=== PATIENT | female | born 1955 | race Caucasian/White ===

== ENCOUNTER → 2016-07-02 06:45 | Day surgery (SDC) | payer BC ==
[~2016-07-02 06:45] MED LIST: Buffered Lidocaine 1% SYRIN* 3 ML/SYR SYRINGE INTRADERM ONE; Bupivacaine 0.25% SDV* 30 ML ONE; Dextrose 50% Syringe 50 ML* 25 GM/50 ML SYRINGE IV PUSH PRN; Famotidine IV* 10 MG/ML 2 ML (20 mg) IV ONE; Famotidine IV* 10 MG/ML 2 ML (20 mg) ONE; HYDROcodone/ACETAMIN 5-325 MG* 1 TAB PO PRN; Insulin LISPRO* 1 UNITS UNIT SUBCUT ONE; Insulin REGULAR(*) 1 UNITS UNIT ONE; Lidocaine 2% PF* 5 ML VIAL ONE; Midazolam* 1 MG/ML 2 ML VIAL (2 MG) ONE; Midazolam* 1 MG/ML 5 ML VIAL (5 MG) ONE; PROCHLORPERAZINE INJ 5 MG/ML 2 ML VIAL IV PRN; Propofol* 10 MG/ML 20 ML BTL IV PUSH ONE; ceFAZolin 2 GM PREMIX(*) 2 GM/50 ML BAG IVPB ONE; fentaNYL* 50 MCG/ML 2 ML VIAL (100 MCG VIAL) IV PRN; fentaNYL* 50 MCG/ML 2 ML VIAL (100 MCG VIAL) ONE
[2016-07-02 08:34] VITALS: BP 106/54
== END | disposition home or self-care (01) ==
LOC: OREAST 06:45
PROVIDERS: ATTEND Plastic Surgery
DX: M65.321 Trigger finger, right index finger (principal); M67.441 Ganglion, right hand; E11.9 Type 2 diabetes mellitus without complications; I10 Essential (primary) hypertension; D64.9 Anemia, unspecified; Z68.41 Body mass index [BMI] 40.0-44.9, adult; Z79.4 Long term (current) use of insulin
CPT/HCPCS: 88304; J0690; J2250; J2704; J3010

== ENCOUNTER 2016-09-24 06:13 | Day surgery (SDC) | payer BC ==
[~2016-09-24 06:13] MED LIST changes: +Buffered Lidocaine 0.9% SYRIN* 5 ML/SYR SYRINGE INTRADERM ONE; -Buffered Lidocaine 1% SYRIN* 3 ML/SYR SYRINGE INTRADERM ONE; -Bupivacaine 0.25% SDV* 30 ML ONE; -Dextrose 50% Syringe 50 ML* 25 GM/50 ML SYRINGE IV PUSH PRN; -Famotidine IV* 10 MG/ML 2 ML (20 mg) IV ONE; -Famotidine IV* 10 MG/ML 2 ML (20 mg) ONE; -HYDROcodone/ACETAMIN 5-325 MG* 1 TAB PO PRN; -Insulin LISPRO* 1 UNITS UNIT SUBCUT ONE; -Insulin REGULAR(*) 1 UNITS UNIT ONE; -Lidocaine 2% PF* 5 ML VIAL ONE; -Midazolam* 1 MG/ML 2 ML VIAL (2 MG) ONE; -Midazolam* 1 MG/ML 5 ML VIAL (5 MG) ONE; -PROCHLORPERAZINE INJ 5 MG/ML 2 ML VIAL IV PRN; -Propofol* 10 MG/ML 20 ML BTL IV PUSH ONE; -ceFAZolin 2 GM PREMIX(*) 2 GM/50 ML BAG IVPB ONE; -fentaNYL* 50 MCG/ML 2 ML VIAL (100 MCG VIAL) IV PRN; -fentaNYL* 50 MCG/ML 2 ML VIAL (100 MCG VIAL) ONE
[2016-09-24] MEDS ORDERED: ceFAZolin 2 GM PREMIX(*) 2 GM/50 ML BAG IVPB ONE (06:33)
[2016-09-24] MEDS ORDERED: Buffered Lidocaine 0.9% SYRIN* 5 ML/SYR SYRINGE ONE (06:33)
[2016-09-24] MEDS ORDERED: Insulin LISPRO* 1 UNITS UNIT SUBCUT ONE (06:48)
[2016-09-24] MEDS ORDERED: Bupivacaine 0.25% SDV* 30 ML ONE (07:08)
[2016-09-24] MEDS ORDERED: Midazolam* 1 MG/ML 2 ML VIAL (2 MG) ONE (07:49)
[2016-09-24] MEDS ORDERED: fentaNYL* 50 MCG/ML 2 ML VIAL (100 MCG VIAL) ONE (07:49)
[2016-09-24 09:16] VITALS: BP 105/63
== END 2016-09-24 09:34 | disposition home or self-care (01) ==
LOC: OR 06:13
PROVIDERS: ATTEND Plastic Surgery
DX: M65.322 Trigger finger, left index finger (principal); M65.342 Trigger finger, left ring finger; R22.32 Localized swelling, mass and lump, left upper limb; L90.5 Scar conditions and fibrosis of skin; E10.8 Type 1 diabetes mellitus with unspecified complications; Z79.4 Long term (current) use of insulin; Z79.84 Long term (current) use of oral hypoglycemic drugs
CPT/HCPCS: 88305; J0690; J2250; J3010

== ENCOUNTER 2017-03-11 08:43 | Emergency (ER) | payer BC ==
--- NOTE | 2017-03-11 09:33 | UC ---
Lower Extremity/Ankle HPI - HPI Summary HPI Summary: 61 yo F, left lower extremity discomfort. HX: positive for DM, hypertension. Seen last night; follows up today for swelling left leg. Chronic condition, now with more discomfort primarily over ankle and front of leg. Nurses note: Patient states she is a diabetic, and she will occasionally have left lower extremity swelling. Patient states that yesterday she was having a constant aching pain in her left leg along with swelling. Patient went to her PCP yesterday that recommended she go to the ED or Urgent care for an ultrasound to r/o DVT. Patient states the pain has improved a bit today. - History of Current Complaint Chief Complaint: UCLowerExtremity Stated Complaint: PAIN IN LOWER LEG Time Seen by Provider: 03/11/17 09:30 Hx Obtained From: Patient Onset/Duration: Gradual Onset Severity Initially: Mild Aggravating Factor(s): Standing Able to Bear Weight: Yes - Risk Factors Gout Risk Factors: Age Over 40, Diabetes, Hypertension, Obesity Septic Arthritis Risk Factor: Negative - Allergies/Home Medications Allergies/Adverse Reactions: Allergies Allergy/AdvReac Type Severity Reaction Status Date / Time Clarithromycin [From Biaxin] Allergy Intermediate Rash Verified 03/11/17 08:52 Cephalexin [From Keflex] Allergy INTESTINAL Verified 03/11/17 08:52 Exenatide [From Bydureon] Allergy Hives Verified 03/11/17 08:52 Amoxicillin [From Augmentin] AdvReac Intermediate Diarrhea Verified 03/11/17 08: 52 Clavulanic Acid AdvReac Intermediate Diarrhea Verified 03/11/17 08:52 [From Augmentin] Tetanus Toxoid AdvReac Mild LOCAL Verified 03/11/17 08:52 SWELLING PMH/Surg Hx/FS Hx/Imm Hx Previously Healthy: No Endocrine History: Diabetes Cardiovascular History: Hypertension - Surgical History Surgical History: Yes Surgery Procedure, Year, and Place: 1988 TONSILLECTOMY- [facility]. 1972 RIGHT BUNIONECTOMY, [facility]. 1992 C SECTION, [facility] [place] BILATERAL TUBAL LIGATION, FOOT SURGERY (SAME TIME) [facility] [place] LEFT FOOT BUNIONECTOMY[place] [facility] [place] RIGHT TOTAL HIP REPLACEMENT, [facility] [place] 2011 LAPAROSCOPIC CHOLECYSTECTOMY, [facility] [place] 1997 NEUROMA REMOVED LEFT FOOT, [facility] [place] RIGHT CARPAL TUNNEL AND TRIGGER FINGER RELEASE, [facility] [place] 2015 LEFT TRIGGER FINGER RELEASE, [facility] [place]. 2017 LEFT HAND INDEX/RING TRIGGER RELEASE, [facility] [place] - Family History Known Family History: Positive: Hypertension - Social History Occupation: Employed Full-time Lives: With Family Alcohol Use: None Substance Use Type: None Smoking Status (MU): Never Smoked Tobacco Have You Smoked in the Last Year: No Review of Systems Constitutional: Negative Skin: Negative Eyes: Negative ENT: Negative Respiratory: Negative Cardiovascular: Negative Gastrointestinal: Negative Genitourinary: Negative Motor: Negative Neurovascular: Negative Musculoskeletal: Edema - swelling left calf Neurological: Negative Psychological: Negative All Other Systems Reviewed And Are Negative: Yes Physical Exam Triage Information Reviewed: Yes Appearance: Well-Appearing, No Pain Distress Vital Signs: Initial Vital Signs Temp 97.5 F 03/11/17 08:53 Pulse 74 03/11/17 08:53 Resp 16 03/11/17 08:53 BP 131/74 03/11/17 08:53 Pulse Ox 97 03/11/17 08:53 Vital Signs Reviewed: Yes Eye Exam: Normal ENT Exam: Normal Dental Exam: Normal Neck exam: Normal Neck: Positive: 1 Respiratory Exam: Normal Respiratory: Positive: Lungs clear Cardiovascular Exam: Normal Cardiovascular: Positive: RRR, No Murmur Abdominal Exam: Normal Abdomen Description: Positive: Nontender Musculoskeletal Exam: Normal - left calf one inch larger than right; neg Homans ; no superficial thrombophlebitis; no pain in calf., Other Neurological Exam: Normal Psychological Exam: Normal Skin Exam: Normal Lower Extremity Course/Dx - Course Course Of Treatment: Patient with increased swelling and discomfort, left lower extremity. Patient will go to ultrasound in 90 minutes. 12 noon: FINDINGS: VEINS: The venous system of the left lower extremity is compressible throughout its. course, with normal flow on color Doppler imaging and normal response to augmentation on. spectral Doppler imaging. SOFT TISSUES: Unremarkable. OTHER FINDINGS: None. IMPRESSION: NO LEFT LOWER EXTREMITY DEEP VEIN THROMBOSIS - Differential Dx/Diagnosis Differential Diagnosis/HQI/PQRI: DVT, Other - chronic, intermitten lower extremity edema; venous insufficiency Provider Diagnoses: Left lower leg swelling and discomfort; probable chronic, intermittent venous insufficiency. Discussed with patient. Discharge - Discharge Plan Condition: Stable Disposition: HOME Patient Education Materials: Leg Edema (ED) Referrals: Edmund Luis MD [Primary Care Provider] - Additional Instructions: Thanks for doing the [employer]. WE DISCUSSED: 1. NO BLOOD CLOT IN YOUR LEG. 2. This is probably a mild case of venous insufficiency and can be related to sitting or standing too much. See attached description. 3. Re check at any time for increased pain or swelling or shortness of breath.
--- NOTE | 2017-03-11 11:47 | RAD ---
HISTORY: Left leg pain and swelling COMPARISONS: August 03, 2013 TECHNIQUE: Multiple transverse and longitudinal ultrasound images were obtained of the left lower extremity from the level of the common femoral vein inferiorly through to the infrapopliteal veins using grayscale, color Doppler, and spectral Doppler imaging with and without compression and with augmentation. Comparison images were obtained of the contralateral common femoral vein. FINDINGS: VEINS: The venous system of the left lower extremity is compressible throughout its course, with normal flow on color Doppler imaging and normal response to augmentation on spectral Doppler imaging. SOFT TISSUES: Unremarkable. OTHER FINDINGS: None. IMPRESSION: NO LEFT LOWER EXTREMITY DEEP VEIN THROMBOSIS
[2017-03-11 11:53] VITALS: BP 139/77
== END 2017-03-11 12:10 | disposition home or self-care (01) ==
LOC: UCEAST 08:43
DX: R60.0 Localized edema (principal); M79.662 Pain in left lower leg; E11.9 Type 2 diabetes mellitus without complications; I10 Essential (primary) hypertension; Z96.641 Presence of right artificial hip joint; Z90.49 Acquired absence of other specified parts of digestive tract; Z88.1 Allergy status to other antibiotic agents; Z88.7 Allergy status to serum and vaccine
CPT/HCPCS: 99212; G0463

== ENCOUNTER 2023-02-21 16:34 | Observation (INO) ==
[2023-02-21 17:02] LABS: ABS Basophils 0.1 10^3/uL (0.0-0.1); ABS Eosinophils 0.2 10^3/uL (0.0-0.5); ABS Lymphocytes 2.9 10^3/uL (1.0-4.8); ABS Monocytes 0.7 10^3/uL (0.0-0.9); ABS Neutrophils 8.9 10^3/uL (1.5-7.6); ABS Nucleated RBC 0.01 10^3/ul; Eosinophil % 1.2 %; Hematocrit 35.8 % (35-45); Hemoglobin 11.9 g/dL (11.5-14.3); Lymphocyte % 22.7 %; Mean Corpuscular Hemoglobin 25.6 pg (27-33); Mean Corpuscular Hgb Conc 33.3 g/dL (31-36); Mean Corpuscular Volume 76.9 fL (80-97); Mean Platelet Volume 8.7 fL (7.5-11.2); Platelet Count 244 10^3/uL (150-450); Red Blood Count 4.66 10^6/uL (3.63-4.92); Red Cell Distribution Width 14.7 % (12-17); White Blood Count 12.8 10^3/uL (3.8-11.8)
[2023-02-21 17:12] LABS: Activated Partial Thrombo Time 30.9 seconds (26.0-38.0); INR 1.16 (0.83-1.13)
[2023-02-21 17:26] LABS: ALT 11 U/L (7-52); Albumin/Globulin Ratio 1.3 (1-3); Alkaline Phosphatase 102 U/L (35-149); Anion Gap 11 mmol/L (2-16); Blood Urea Nitrogen 12 mg/dL (6-24); CO2 Carbon Dioxide 28 mmol/L (22-32); Calcium 8.9 mg/dL (8.6-10.3); Chloride 98 mmol/L (101-111); Cholesterol 138 mg/dL; Creatinine, Serum 0.77 mg/dL (0.51-0.95); Glucose 230 mg/dL (70-100); LDL Cholesterol 64 mg/dL; Sodium 137 mmol/L (135-145); Total Bilirubin 0.4 mg/dL (0.2-1.0); Triglycerides 153 mg/dL; eGFR CKD-EPI 84.5 (>60)
[2023-02-21 18:38] LABS: Direct Bilirubin Redraw 0.1 mg/dL (0.1-0.5); Potassium Redraw 3.2 mmol/L (3.5-5.0)
[2023-02-21] MEDS ORDERED: Iodixanol (CONTRAST) 320 MG/ML 100 ML SDV IV ONE (20:13)
[2023-02-21 21:10] LABS: C Reactive Protein 26.14 mg/L (<8.01)
[2023-02-21 22:05] LABS: Erythrocyte Sed Rate 32 mm/Hr (0-29)
[2023-02-21] MEDS ORDERED: Dextrose 50% Syringe 50 ml 25 GM/50 ML SYRINGE IV PUSH PRN (23:19)
[2023-02-21] MEDS ORDERED: Insulin GLARGINE 100 un/ml 10 ml VIAL SUBCUT SCH (23:30)
[2023-02-22] MEDS ORDERED: Potassium Chlor 20 meq TAB.ER PO ONE ×3 (02:55→12:37)
[2023-02-22 05:24] LABS: ABS Basophils 0.1 10^3/uL (0.0-0.1); ABS Eosinophils 0.1 10^3/uL (0.0-0.5); ABS Lymphocytes 3.3 10^3/uL (1.0-4.8); ABS Monocytes 0.9 10^3/uL (0.0-0.9); ABS Nucleated RBC 0.01 10^3/ul; Eosinophil % 1.1 %; Hematocrit 34.6 % (35-45); Hemoglobin 11.2 g/dL (11.5-14.3); Lymphocyte % 24.3 %; Mean Corpuscular Hemoglobin 24.9 pg (27-33); Mean Corpuscular Hgb Conc 32.4 g/dL (31-36); Mean Corpuscular Volume 76.7 fL (80-97); Mean Platelet Volume 8.3 fL (7.5-11.2); Nucleated Red Blood Cells % 0.1 %/100WBC (0.0-0.8); Platelet Count 247 10^3/uL (150-450); Red Blood Count 4.51 10^6/uL (3.63-4.92); Red Cell Distribution Width 14.6 % (12-17); White Blood Count 13.4 10^3/uL (3.8-11.8)
[2023-02-22 05:42] LABS: Calcium 8.6 mg/dL (8.6-10.3); Creatinine, Serum 0.8 mg/dL (0.51-0.95); Potassium 3.4 mmol/L (3.5-5.0); eGFR CKD-EPI 80.7 (>60)
[2023-02-22 07:36] LABS: Magnesium 1.2 mg/dL (1.9-2.7)
[2023-02-22] MEDS ORDERED: Enoxaparin 40 MG/0.4 ML SYR SUBCUT SCH (08:00)
[2023-02-22] MEDS ORDERED: Magnesium Sulfate 2 gm BAG 2 GM/50 ML BAG IVPB ONE (12:36)
[2023-02-22] MEDS ORDERED: Ondansetron 4 mg VIAL 2 MG/ML 2 ml VIAL IV ONE (14:44)
[2023-02-22 16:38] VITALS: BP 190/69
== END 2023-02-22 16:38 | disposition home or self-care (01) ==
LOC: EDHOLD 16:34 → ED 16:34 → EDHOLD 02-22 16:37
PROVIDERS: ADMIT Internal Medicine; ATTEND Internal Medicine

== ENCOUNTER 2023-02-25 13:09 | Observation (INO) ==
[2023-02-25 13:38] LABS: ABS Basophils 0.2 10^3/uL (0.0-0.1); ABS Eosinophils 0.2 10^3/uL (0.0-0.5); ABS Lymphocytes 2.5 10^3/uL (1.0-4.8); ABS Monocytes 0.8 10^3/uL (0.0-0.9); ABS Neutrophils 11.4 10^3/uL (1.5-7.6); Eosinophil % 1.4 %; Hematocrit 37.7 % (35-45); Lymphocyte % 16.5 %; Mean Corpuscular Hemoglobin 24.7 pg (27-33); Mean Corpuscular Hgb Conc 31.9 g/dL (31-36); Mean Corpuscular Volume 77.5 fL (80-97); Mean Platelet Volume 8.8 fL (7.5-11.2); Platelet Count 243 10^3/uL (150-450); Red Blood Count 4.86 10^6/uL (3.63-4.92); Red Cell Distribution Width 14.9 % (12-17)
[2023-02-25 13:57] LABS: Activated Partial Thrombo Time 32.7 seconds (26.0-38.0); INR 1.17 (0.83-1.13)
[2023-02-25 13:58] LABS: Albumin/Globulin Ratio 1.4 (1-3); Calcium 8.9 mg/dL (8.6-10.3); Creatinine, Serum 0.95 mg/dL (0.51-0.95); Globulin 2.9 g/dL (2-4); HDL Cholesterol 39.4 mg/dL; Indirect Bilirubin 0.4 mg/dL (0.3-1.0); Potassium 3.7 mmol/L (3.5-5.0); Total Bilirubin 0.4 mg/dL (0.2-1.0); Total Protein 6.9 g/dL (6.4-8.9); eGFR CKD-EPI 65.7 (>60)
[2023-02-25] MEDS ORDERED: Ondansetron 4 mg VIAL 2 MG/ML 2 ml VIAL IV ONE (15:58)
[2023-02-25] MEDS: Enoxaparin 40 MG/0.4 ML SYR SUBCUT SCH (16:05)
[2023-02-25] MEDS ORDERED: Metoclopramide 5 MG/ML VIAL (10 mg) IV ONE (17:22)
[2023-02-25] MEDS ORDERED: hydrALAZINE 20 mg/ml 1 ML Vial IV IV SLOW PU PRN (17:29)
[2023-02-25] MEDS: Ondansetron ODT 4 mg TAB 4 MG TAB PO PRN (22:50)
[2023-02-26 09:58] LABS: ABS Eosinophils 0.2 10^3/uL (0.0-0.5); ABS Lymphocytes 2.8 10^3/uL (1.0-4.8); ABS Monocytes 0.9 10^3/uL (0.0-0.9); ABS Neutrophils 10.5 10^3/uL (1.5-7.6); ABS Nucleated RBC 0.03 10^3/ul; Eosinophil % 1.6 %; Hematocrit 36.7 % (35-45); Lymphocyte % 19.4 %; Mean Corpuscular Hemoglobin 25.2 pg (27-33); Mean Corpuscular Hgb Conc 32.7 g/dL (31-36); Mean Corpuscular Volume 76.8 fL (80-97); Mean Platelet Volume 9.2 fL (7.5-11.2); Nucleated Red Blood Cells % 0.2 %/100WBC (0.0-0.8); Platelet Count 264 10^3/uL (150-450); Red Blood Count 4.78 10^6/uL (3.63-4.92); Red Cell Distribution Width 14.7 % (12-17); White Blood Count 14.6 10^3/uL (3.8-11.8)
[2023-02-26 10:12] LABS: Calcium 8.7 mg/dL (8.6-10.3); Creatinine, Serum 0.98 mg/dL (0.51-0.95); Potassium 3.6 mmol/L (3.5-5.0); eGFR CKD-EPI 63.3 (>60)
[2023-02-26] MEDS ORDERED: Lisinopril/HCTZ 20/25 TAB (NF) PO SCH (16:00)
[2023-02-26] MEDS: Enoxaparin 40 MG/0.4 ML SYR SUBCUT SCH (17:05)
[2023-02-26] MEDS ORDERED: Dextrose 50% Syringe 50 ml 25 GM/50 ML SYRINGE IV PUSH PRN (17:09)
[2023-02-26 17:52] VITALS: BP 141/70
[2023-02-26] MEDS: Ondansetron ODT 4 mg TAB 4 MG TAB PO PRN (19:54)
== END 2023-02-26 21:20 | disposition home or self-care (01) ==
LOC: EDHOLD 13:09 → ED 13:09 → MEDTELE 19:41
PROVIDERS: ADMIT Student in an Organized Health Care Education/Training Program; ATTEND Student in an Organized Health Care Education/Training Program

== ENCOUNTER 2023-12-15 10:40 | Observation (INO) ==
[2023-12-15] MEDS: Iodixanol (CONTRAST) 320 MG/ML 100 ML SDV IV ONE (10:58)
[2023-12-15 11:13] LABS: ABS Basophils 0.1 10^3/uL (0.0-0.1); ABS Eosinophils 0.2 10^3/uL (0.0-0.5); ABS Lymphocytes 2.4 10^3/uL (1.0-4.8); ABS Monocytes 0.7 10^3/uL (0.0-0.9); ABS Neutrophils 7.2 10^3/uL (1.5-7.6); ABS Nucleated RBC 0.01 10^3/ul; Eosinophil % 1.8 %; Hematocrit 31.2 % (35-45); Hemoglobin 10.1 g/dL (11.5-14.3); Mean Corpuscular Hemoglobin 24.6 pg (27-33); Mean Corpuscular Hgb Conc 32.3 g/dL (31-36); Mean Corpuscular Volume 76.1 fL (80-97); Mean Platelet Volume 8.5 fL (7.5-11.2); Nucleated Red Blood Cells % 0.1 %/100WBC (0.0-0.8); Platelet Count 195 10^3/uL (150-450); White Blood Count 10.6 10^3/uL (3.8-11.8)
[2023-12-15 11:15] LABS: Activated Partial Thrombo Time 35.1 seconds (26.0-38.0); INR 1.12 (0.85-1.14)
[2023-12-15 11:43] LABS: Albumin 3.8 g/dL (3.2-5.2); Albumin/Globulin Ratio 1.7 (1-3); Creatinine, Serum 0.82 mg/dL (0.51-0.95); Globulin 2.3 g/dL (2-4); Indirect Bilirubin 0.2 mg/dL (0.3-1.0); Total Bilirubin 0.2 mg/dL (0.2-1.0); Total Protein 6.1 g/dL (6.4-8.9); eGFR CKD-EPI 77.9 (>60)
[2023-12-15] MEDS: Metoclopramide 5 MG/ML VIAL (10 mg) IV ONE (13:02)
[2023-12-15 14:42] LABS: TSH Ultra Thyroid Stim Horm 2.1 mcIU/mL (0.34-5.60)
[2023-12-15] MEDS ORDERED: Dextrose 50% Syringe 50 ml 25 GM/50 ML SYRINGE IV PUSH PRN ×2 (15:54→20:35)
[2023-12-15] MEDS: Lidocaine PATCH 5% PATCH TRANSDERM ONE (18:28)
[2023-12-16 05:42] LABS: ABS Basophils 0.1 10^3/uL (0.0-0.1); ABS Eosinophils 0.1 10^3/uL (0.0-0.5); ABS Lymphocytes 2.6 10^3/uL (1.0-4.8); ABS Monocytes 0.9 10^3/uL (0.0-0.9); Eosinophil % 0.6 %; Hematocrit 32.1 % (35-45); Hemoglobin 10.2 g/dL (11.5-14.3); Lymphocyte % 17.8 %; Mean Corpuscular Hemoglobin 24.5 pg (27-33); Mean Corpuscular Hgb Conc 31.8 g/dL (31-36); Mean Corpuscular Volume 77.1 fL (80-97); Mean Platelet Volume 8.7 fL (7.5-11.2); Platelet Count 217 10^3/uL (150-450); Red Blood Count 4.17 10^6/uL (3.63-4.92); Red Cell Distribution Width 15.4 % (12-17); White Blood Count 14.7 10^3/uL (3.8-11.8)
[2023-12-16 06:17] LABS: Calcium 8.9 mg/dL (8.6-10.3); Creatinine, Serum 0.79 mg/dL (0.51-0.95); Potassium 4.3 mmol/L (3.5-5.0); eGFR CKD-EPI 81.4 (>60)
[2023-12-16 07:47] LABS: Urine Appearance Clear; Urine Bilirubin Negative (Negative); Urine Blood Negative (Negative); Urine Color Colorless; Urine Glucose 3+ (>=300 mg/dL) (Negative); Urine Ketones Trace (Negative); Urine Nitrite Negative (Negative); Urine Protein Negative (Negative); Urine Specific Gravity 1.011 (1.002-1.030); Urine Urobilinogen Negative (Negative); Urine pH 5.5 (5.0-8.0)
[2023-12-16 09:38] VITALS: BP 159/80
== END 2023-12-16 14:50 | disposition home or self-care (01) ==
LOC: ED 10:40 → EDHOLD 10:40 → MED 17:11
PROVIDERS: ADMIT Internal Medicine; ATTEND Internal Medicine